=== PATIENT | male | born 1990 | race Caucasian/White ===

== ENCOUNTER 2021-10-09 16:28 | Emergency (ER) | payer OTHER ==
[~2021-10-09 16:28] MED LIST: ZOFRAN4 MG PO
[2021-10-09 17:41] LABS: INFLUENZA A NAA NEGATIVE (NEGATIVE)
[2021-10-09 17:46] LABS: CORONAVIRUS 2019 SARS-COV-2 POSITIVE (NEGATIVE)
[2021-10-09 18:45] LABS: BUN/CREAT RATIO (CALC) 23.6 RATIO; CREATININE 0.89 mg/dL (0.67-1.17); POTASSIUM 3.9 mmol/L (3.5-5.1)
[2021-10-09 18:47] LABS: BASOPHIL 0.2 % (0-2); EOSINOPHIL 0.2 % (0-5); HCT 40.9 % (42.0-52.0); HGB 13.4 g/dl (13.2-18.0); LYMPHOCYTE 12.1 % (15-48); MCH 29.3 pg (25.0-31.0); MCHC 32.8 g/dL (32.0-36.0); MCV 89.5 fL (78.0-100.0); MONOCYTE 5.1 % (0-12); MPV 11.7 fL (6.0-9.5); NEUTROPHIL 82.1 % (41-80); NRBC 0; PLT 267 K/uL (150-400); RBC 4.57 M/uL (4.70-6.00); RDW 14.1 % (11.5-14.0); WBC 13.1 K/uL (4.0-10.5)
== END 2021-10-09 19:40 | disposition home or self-care (01) ==
LOC: FER 16:28
PROVIDERS: Nurse Practitioner Family
DX: U07.1 COVID-19 (principal)
CPT/HCPCS: 36415; 80048; 85025; J2405; J7030; U0002